=== PATIENT | male | born 1970 | race Caucasian/White ===

== ENCOUNTER 2016-08-17 22:20 | Emergency (ER) | payer BC ==
[2016-08-17 22:46] LABS: ABSOLUTE BASOPHILS # (AUTO) 0.2 10^3/uL (0.0-0.2); ABSOLUTE EOSINOPHILS # (AUTO) 0.3 10^3/uL (0.0-0.6); ABSOLUTE MONOCYTES (AUTO) 0.9 10^3/uL (0.1-1.4); ABSOLUTE NEUT (AUTO) 7.1 10^3/uL (1.7-8.2); BASOPHILS % (AUTO) 1.2 % (0-2); HEMOGLOBIN 17.4 g/dL (13.5-17.0); HGB HCT DIFFERENCE 1.2; LYMPHOCYTES % (AUTO) 32.5 % (13-45); MEAN CORPUSCULAR HEMOGLOBIN 31.3 pg (27.0-33.4); MEAN CORPUSCULAR VOLUME 92 fl (80-97); MONOCYTES % (AUTO) 6.9 % (3-13); RED BLOOD COUNT 5.54 10^6/uL (4.35-5.55); RED CELL DISTRIBUTION WIDTH 14.2 % (11.5-14.0); SEGMENTED NEUTROPHILS % (AUTO) 57.4 % (42-78); WHITE BLOOD COUNT 12.3 10^3/uL (4.0-10.5)
[2016-08-17 23:00] LABS: ANION GAP 15 (5-19)
[2016-08-17] MEDS ORDERED: ALBUTEROL SULFATE 0.083% NEB 2.5 MG/3 ML AMPUL NEB ONE (23:01)
--- NOTE | 2016-08-17 23:01 | ER Document Report ---
ED Cardiac - General Chief Complaint: Chest Pain Stated Complaint: CHEST PAIN Time Seen by Provider: 08/17/16 22:31 Mode of Arrival: Ambulatory Information source: Patient - HPI Patient complains to provider of: Chest pain Use of: Alcohol Was the onset of pain: Gradual When did pain begin: 2pm Is the pain a: New problem Chest pain location: Other - Anterior chest wall Quality of pain: Achy Severity now: None Severity at worst: Moderate Pain level currently: 0 Chest pain precipitating factors: Mental Exertion/Stress Cardiac risk factors: Smoker Positive cardiac history: No Associated symptoms: Anxiety Exacerbated by: Deep breaths, Torso movement Relieved by: Nothing Similar symptoms previously: No Recently seen / treated by doctor: No Notes: Patient is a 45-year-old male who presents to the emergency room complaining of left-sided chest pain that started around 2 PM today, he states he has been having some chest pain intermittently for the past few weeks, reports that it is likely related to stress and anxiety, because his left him in early June, he moved from [facility] to the [facility] to stay with his family and his father in late June, he reports the pain is worse when he coughs or presses on it and sometimes when he takes a deep breath, he does have a cough productive of greenish colored phlegm, denies any fever, he is a heavy smoker, and drinks 4-5 beers daily, denies any history of any medical problems, does not currently take any medications - Related Data Allergies/Adverse Reactions: No Known Allergies Allergy (Unverified 08/17/16 22:37) Past Medical History - General Information source: Patient - Social History Smoking Status: Current Every Day Smoker Frequency of alcohol use: Heavy Family History: Reviewed & Not Pertinent Review of Systems - Review of Systems Constitutional: No symptoms reported EENT: No symptoms reported Cardiovascular: See HPI Respiratory: See HPI Gastrointestinal: No symptoms reported Genitourinary: No symptoms reported Male Genitourinary: No symptoms reported Musculoskeletal: No symptoms reported Skin: No symptoms reported Hematologic/Lymphatic: No symptoms reported Neurological/Psychological: See HPI -: Yes All other systems reviewed and negative Physical Exam - Vital signs Vitals: Pulse Ox 94 08/17/16 22:20 Interpretation: Normal - General General appearance: Appears well, Alert In distress: None - HEENT Head: Normocephalic, Atraumatic Eyes: Normal Conjunctiva: Normal Eyelashes: Normal Pupils: PERRL Pharynx: Normal, Other - EtOH on breath - Respiratory Respiratory status: No respiratory distress Chest status: Tender - Palpation left anterior chest wall Breath sounds: Productive cough, Wheezing Chest palpation: Normal - Cardiovascular Rhythm: Regular Heart sounds: Normal auscultation Murmur: No - Abdominal Inspection: Normal Distension: No distension Bowel sounds: Normal Tenderness: Nontender Organomegaly: No organomegaly - Back Back: Normal, Nontender - Extremities General upper extremity: Normal inspection, Nontender, Normal color, Normal ROM , Normal temperature General lower extremity: Normal inspection, Nontender, Normal color, Normal ROM , Normal temperature, Normal weight bearing. No: Tammy's sign - Neurological Neuro grossly intact: Yes Cognition: Normal Orientation: AAOx4 [place] Coma Scale Eye Opening: Spontaneous Stephen Coma Scale Verbal: Oriented Stephen Coma Scale Motor: Obeys Commands [place] Coma Scale Total: 15 Speech: Normal Motor strength normal: LUE, RUE, LLE, RLE Sensory: Normal - Psychological Associated symptoms: Normal affect, Normal mood - Skin Skin Temperature: Warm Skin Moisture: Dry Skin Color: Normal Course - Re-evaluation Re-evalutation: 08/18/16 02:04 Patient symptoms are reproducible with palpation, he has a productive cough, he is a heavy smoker and has wheezing on initial, he was provided with an albuterol breathing treatment, workup in the emergency room is otherwise unremarkable except for mild liver enzyme elevation, patient was advised to stop smoking and drinking, he was provided with an albuterol inhaler, as well as information for follow-up with both a primary care provider and a mental health professional, patient advised to return if symptoms worsen, patient and family members at bedside acknowledge understanding and agreement with this plan - Vital Signs Vital signs: Temp Pulse Resp BP Pulse Ox 29 H 125/75 92 08/17/16 22:33 08/18/16 00:01 08/18/16 00:01 - Laboratory Result Diagrams: 08/17/16 22:30 08/17/16 22:30 Laboratory results interpreted by me: 08/17/16 08/17/16 22:30 22:30 WBC 12.3 H Hgb 17.4 H RDW 14.2 H Sodium 145.2 H ALT 79 H Creatine Kinase 185 H - Diagnostic Test Radiology reviewed: Image reviewed, Reports reviewed - EKG Interpretation by Me EKG shows normal: Sinus rhythm Rate: Normal Rhythm: NSR Discharge - Discharge Clinical Impression: Chest pain Qualifiers: Chest pain type: unspecified Qualified Code(s): R07.9 - Chest pain, unspecified Alcohol intoxication Qualifiers: Complication of substance-induced condition: uncomplicated Qualified Code(s): F10.920 - Alcohol use, unspecified with intoxication, uncomplicated Depression Qualifiers: Depression Type: unspecified Qualified Code(s): F32.9 - Major depressive disorder, single episode, unspecified Condition: Stable Disposition: HOME, SELF-CARE Instructions: Chest Pain of Unclear Cause ([facility]), Acute Alcohol Intoxication ( [facility]), Chronic Alcoholism ([facility]), Liver Function Abnormality ([facility]), Chronic Obstructive Lung Disease ([facility]) Additional Instructions: Follow up with your primary care provider in one to 2 days. Return to the emergency room immediately if symptoms worsen or any additional concerns. Forms: Smoking Cessation Education
[2016-08-17 23:12] LABS: CREATINE KINASE MB 3.22 ng/mL (<4.55); TROPONIN I < 0.012 ng/mL
[2016-08-17 23:16] LABS: ALANINE AMINOTRANSFERASE 79 U/L (21-72); ALBUMIN 4.6 g/dL (3.5-5.0); ALKALINE PHOSPHATASE 112 U/L (38-126); ASPARTATE AMINO TRANSFERASE 46 U/L (17-59); BILIRUBIN,DIRECT 0.4 mg/dL (0.0-0.4); BILIRUBIN,TOTAL 0.4 mg/dL (0.2-1.3); BLOOD UREA NITROGEN 9 mg/dL (7-20); CALCIUM 9.4 mg/dL (8.4-10.2); CARBON DIOXIDE 27 mmol/L (22-30); CHLORIDE 103 mmol/L (98-107); CREATINE KINASE 185 U/L (55-170); CREATININE RESULT 0.65 mg/dL (0.52-1.25); GLUCOSE 95 mg/dL (75-110); POTASSIUM 4.2 mmol/L (3.6-5.0); SODIUM 145.2 mmol/L (137-145); TOTAL PROTEIN 7.3 g/dL (6.3-8.2)
[2016-08-18 00:04] VITALS: BP 125/75
[2016-08-18] MEDS ORDERED: ALBUTEROL SULFATE HFA (90 MCG/PUFF) 8 GM MDI (1 MDI/ER DISP) IH SCH (02:00)
--- NOTE | 2016-08-18 17:07 | EKG REPORT ---
SEVERITY:- NORMAL ECG - SINUS RHYTHM : Confirmed by: Milli Cardoza MD 18-Aug-2016 17:06:53
== END 2016-08-18 00:12 | disposition home or self-care (01) ==
LOC: ER 22:20
DX: R07.89 Other chest pain (principal); R05 Cough; F17.200 Nicotine dependence, unspecified, uncomplicated; R06.2 Wheezing; R74.8 Abnormal levels of other serum enzymes; F10.920 Alcohol use, unspecified with intoxication, uncomplicated; F32.9 Major depressive disorder, single episode, unspecified
CPT/HCPCS: 93005; 94640; 99285; 36415; 82553; 80307; 82550; 85025; 80053; 84484; 83880; 71020; 93010; J3490